=== PATIENT | male | born 1935 | race Caucasian/White ===

== ENCOUNTER 2018-06-03 10:22 | Inpatient (IN) | payer OTHER, BC ==
[~2018-06-03] VITALS: Ht 190.5 cm; Wt 71.8 kg
[2018-06-03 10:31] VITALS: Ht 190.5 cm; Wt 71.8 kg
[2018-06-03] MEDS ORDERED: MIRALAX17 GM PO (10:41)
[2018-06-03] MEDS ORDERED: COLACE100 MG PO (10:42)
[2018-06-03] MEDS ORDERED: SENNA LAX8.6 MG PO (10:42)
[2018-06-03] MEDS ORDERED: MYSOLINE50 M1 PO (10:42)
[2018-06-03] MEDS ORDERED: ELIQUIS2.5 MG PO (10:43)
[2018-06-03] MEDS ORDERED: LIPI20 PO (10:43)
[2018-06-03 10:59] LABS: PLATELET COUNT 253 x10^3mcL (130-400)
[2018-06-03 11:24] LABS: ALBUMIN 3.6 g/dL (3.4-5.0); ALKALINE PHOSPHATASE 72 U/L (46-116); ALT/SGPT 14 U/L (16-63); AST/SGOT 15 U/L (15-37); BILIRUBIN TOTAL 0.5 mg/dL (0.20-1.00); C REACTIVE PROTEIN 3.7 mg/dL (<=0.9); CALCIUM 9.1 mg/dL (8.5-10.1); CHLORIDE SERUM 90 mmol/L (98-107); CREATININE SERUM 0.7 mg/dL (0.7-1.3); GLUCOSE SERUM 98 mg/dL (74-106); POTASSIUM SERUM 3.5 mmol/L (3.5-5.1); SODIUM SERUM 136 mmol/L (136-145)
[2018-06-03 11:26] LABS: CARBON DIOXIDE 41.8 mmol/L (21-32)
[2018-06-03 11:27] LABS: T3 TOTAL 0.67 ng/mL
[2018-06-03 11:28] LABS: CK-MB 0.7 ng/mL (0-3.6)
[2018-06-03 11:37] LABS: BAND NEUTROPHIL 3 % (0-10); BASOPHIL 0 % (0-2); MONOCYTE 24 % (0-7); PLATELET MORPHOLOGY PLATELETS NORMAL; SEGMENTED NEUTROPHILS 51 % (37-75)
[2018-06-03 12:02] LABS: FREE T4 0.84 ng/dL (0.76-1.46)
[2018-06-03 12:03] LABS: FREE THYROXINE INDEX 1.5 ug/dL (1.4-4.5); T4(THYROXINE) 4.3 ug/dL (4.7-13.3)
[2018-06-03 12:55] LABS: ERYTHROCYTE SED RATE 43 mm/hr (0-20)
[2018-06-03 13:15] LABS: microscopic required? YES; urine erythrocyte 3+ (NEGATIVE)
[2018-06-03 14:11] VITALS: BP 138/60
[2018-06-03 14:15] VITALS: BP 138/60
[2018-06-03 17:27] VITALS: BP 120/59
[2018-06-03 20:43] VITALS: BP 126/64
[2018-06-04 05:47] VITALS: BP 105/47
[2018-06-04 06:43] LABS: CALCIUM 8.5 mg/dL (8.5-10.1); CHLORIDE SERUM 95 mmol/L (98-107); CREATININE SERUM 0.7 mg/dL (0.7-1.3); GLUCOSE SERUM 95 mg/dL (74-106); POTASSIUM SERUM 3.2 mmol/L (3.5-5.1); SODIUM SERUM 139 mmol/L (136-145)
[2018-06-04 06:55] LABS: CARBON DIOXIDE 41.5 mmol/L (21-32)
[2018-06-04 07:00] LABS: FREE T4 1.05 ng/dL (0.76-1.46); T4(THYROXINE) 5.5 ug/dL (4.7-13.3)
[2018-06-04 07:02] LABS: PLATELET COUNT 203 x10^3mcL (130-400)
[2018-06-04 07:18] LABS: T3 TOTAL 0.71 ng/mL
[2018-06-04 09:02] VITALS: BP 142/46
[2018-06-04 11:42] VITALS: BP 128/59
[2018-06-04 14:08] LABS: BAND NEUTROPHIL 2 % (0-10); MONOCYTE 33 % (0-7); SEGMENTED NEUTROPHILS 48 % (37-75)
[2018-06-04 14:09] LABS: PLATELET MORPHOLOGY PLATELETS NORMAL; rbc morphology (normal/abnorm) NORMAL (NORMAL)
[2018-06-04 16:46] VITALS: BP 119/60
[2018-06-04 21:24] VITALS: BP 127/61
[2018-06-05 05:43] VITALS: BP 148/67
[2018-06-05 06:31] LABS: PLATELET COUNT 196 x10^3mcL (130-400)
[2018-06-05 06:37] LABS: RED CELL DISTRIBUTION WIDTH 14.9 % (11.5-14.5)
[2018-06-05 06:40] LABS: CALCIUM 8.9 mg/dL (8.5-10.1); CHLORIDE SERUM 96 mmol/L (98-107); CREATININE SERUM 0.6 mg/dL (0.7-1.3); GLUCOSE SERUM 98 mg/dL (74-106); MAGNESIUM 1.7 mg/dL (1.8-2.4); PHOSPHOROUS 3.4 mg/dL (2.5-4.9); POTASSIUM SERUM 4.3 mmol/L (3.5-5.1); SODIUM SERUM 140 mmol/L (136-145)
[2018-06-05 06:42] LABS: CARBON DIOXIDE 40.6 mmol/L (21-32)
[2018-06-05 09:05] VITALS: BP 123/66
[2018-06-05 12:06] VITALS: BP 112/62
[2018-06-05 12:23] LABS: BAND NEUTROPHIL 3 % (0-10); MONOCYTE 36 % (0-7); SEGMENTED NEUTROPHILS 46 % (37-75)
[2018-06-05 12:24] LABS: PLATELET MORPHOLOGY PLATELETS NORMAL; rbc morphology (normal/abnorm) NORMAL (NORMAL)
[2018-06-05] MEDS ORDERED: LEVOFLOXACIN I150 ML IV (13:38)
[2018-06-05] MEDS ORDERED: IPRATROPIUM BROM3 M2 HHN (13:40)
[2018-06-05] MEDS ORDERED: FLA500 PO (13:40)
[2018-06-05] MEDS ORDERED: CYCLOBENZAPRINE5 MG PO (13:40)
[2018-06-05] MEDS ORDERED: TYL325 PO (13:41)
[2018-06-05] MEDS ORDERED: COL100 PO (13:41)
[2018-06-05] MEDS ORDERED: ULT50 PO (13:41)
[2018-06-05] MEDS ORDERED: MIRUD PO (13:42)
[2018-06-05] MEDS ORDERED: SEN PO (13:42)
[2018-06-05] MEDS ORDERED: ONDANSETRON4 M3 PO (13:43)
[2018-06-05] MEDS ORDERED: BD LACTINEX1.4 MG PO (13:44)
[2018-06-05 14:10] VITALS: BP 112/62
== END 2018-06-05 15:18 | disposition short-term general hospital (02) | DRG 177 ==
LOC: ED 10:22 → DU 12:09
PROVIDERS: Family Medicine; Specialist
DX: J69.0 Pneumonitis due to inhalation of food and vomit (principal); J86.9 Pyothorax without fistula; J96.22 Acute and chronic respiratory failure with hypercapnia; I26.99 Other pulmonary embolism without acute cor pulmonale; N17.0 Acute kidney failure with tubular necrosis; E43 Unspecified severe protein-calorie malnutrition; J44.9 Chronic obstructive pulmonary disease, unspecified; I48.2 Chronic atrial fibrillation; K76.89 Other specified diseases of liver; F41.9 Anxiety disorder, unspecified; E87.6 Hypokalemia; R31.9 Hematuria, unspecified; R91.8 Other nonspecific abnormal finding of lung field; I45.10 Unspecified right bundle-branch block; G25.0 Essential tremor; F41.8 Other specified anxiety disorders; Z68.23 Body mass index [BMI] 23.0-23.9, adult; Z99.81 Dependence on supplemental oxygen; Z66 Do not resuscitate
CPT/HCPCS: 36600; 84439; J1956; J2060; J3475; J3490; J7030; J7613; J7620; J7644; Q0092; Q9967

== ENCOUNTER 2018-11-07 05:42 | Inpatient (IN) | payer OTHER, BC ==
[~2018-11-07] VITALS: Ht 190.5 cm; Wt 68.0 kg
[~2018-11-07 05:42] MED LIST: BD LACTINEX1.4 MG PO; COL100 PO; COLACE100 MG PO; CYCLOBENZAPRINE5 MG PO; ELIQUIS2.5 MG PO; FLA500 PO; IPRATROPIUM BROM3 M2 HHN; LEVOFLOXACIN I150 ML IV; LIPI20 PO; MIRALAX17 GM PO; MIRUD PO; MYSOLINE50 M1 PO; ONDANSETRON4 M3 PO; SEN PO; SENNA LAX8.6 MG PO; TYL325 PO; ULT50 PO
[2018-11-07 05:46] VITALS: Ht 190.5 cm; Wt 68.0 kg
[2018-11-07] MEDS ORDERED: ELIQUIS2.5 MG PO (06:30)
[2018-11-07] MEDS ORDERED: METOPROLOL TART25 M1 PO (06:31)
[2018-11-07] MEDS ORDERED: MAGNESIUM OXID400 MG PO (06:31)
[2018-11-07] MEDS ORDERED: NATURAL IRON65 MG PO (06:31)
[2018-11-07] MEDS ORDERED: ROZEREM8 M1 PO (06:32)
[2018-11-07] MEDS ORDERED: ZOLOFT50 MG GT (06:32)
[2018-11-07 07:08] LABS: CK-MB 0.7 ng/mL (0-3.6); FREE T4 1.04 ng/dL (0.76-1.46); FREE THYROXINE INDEX 2.4 ug/dL (1.4-4.5); T4(THYROXINE) 6.8 ug/dL (4.7-13.3)
[2018-11-07 07:12] LABS: CALCIUM 7.9 mg/dL (8.5-10.1); CARBON DIOXIDE 34.9 mmol/L (21-32); CHLORIDE SERUM 102 mmol/L (98-107); CREATININE SERUM 0.7 mg/dL (0.7-1.3); GLUCOSE SERUM 131 mg/dL (74-106); POTASSIUM SERUM 3.7 mmol/L (3.5-5.1); SODIUM SERUM 140 mmol/L (136-145)
[2018-11-07 07:22] LABS: ALKALINE PHOSPHATASE 65 U/L (46-116); ALT/SGPT 15 U/L (16-63); AST/SGOT 18 U/L (15-37); BILIRUBIN TOTAL 0.47 mg/dL (0.20-1.00); C REACTIVE PROTEIN 7.9 mg/dL (<=0.9); TOTAL PROTEIN, SERUM 6.6 g/dL (6.4-8.2)
[2018-11-07 07:26] LABS: ALBUMIN 2.4 g/dL (3.4-5.0)
[2018-11-07 07:41] LABS: PLATELET COUNT 378 x10^3mcL (130-400); RED CELL DISTRIBUTION WIDTH 14.4 % (11.5-14.5)
[2018-11-07] MEDS ORDERED: MYS50 PO (08:06)
[2018-11-07 08:30] LABS: T3 TOTAL 0.69 ng/mL
[2018-11-07 08:34] LABS: ERYTHROCYTE SED RATE 49 mm/hr (0-20)
[2018-11-07 08:57] LABS: BAND NEUTROPHIL 15 % (0-10); BASOPHIL 0 % (0-2); MONOCYTE 10 % (0-7); PLATELET MORPHOLOGY GIANT PLATELET SEEN; SEGMENTED NEUTROPHILS 73 % (37-75); rbc morphology (normal/abnorm) ABNORMAL (NORMAL); tear drop cell (dacryocyte) 1+
[2018-11-07 10:33] LABS: MAGNESIUM 1.8 mg/dL (1.8-2.4); PHOSPHOROUS 3.4 mg/dL (2.5-4.9)
[2018-11-07 11:04] LABS: CHOLESTEROL/HDL RATIO 1.8
[2018-11-07 11:05] VITALS: BP 83/41
[2018-11-07 12:49] VITALS: BP 87/40
[2018-11-07 13:30] VITALS: BP 87/40
[2018-11-07 15:45] VITALS: BP 112/45
[2018-11-07 17:05] VITALS: BP 112/45
[2018-11-07 21:15] VITALS: BP 100/42
[2018-11-08 03:32] LABS: UA SPECIFIC GRAVITY >=1.030 (1.005-1.035); microscopic required? YES; urine erythrocyte 1+ (NEGATIVE)
[2018-11-08 05:55] VITALS: BP 94/39
[2018-11-08 09:06] LABS: PLATELET COUNT 273 x10^3mcL (130-400); RED CELL DISTRIBUTION WIDTH 14.2 % (11.5-14.5)
[2018-11-08 09:19] LABS: CALCIUM 8.5 mg/dL (8.5-10.1); CARBON DIOXIDE 33.7 mmol/L (21-32); CHLORIDE SERUM 102 mmol/L (98-107); CREATININE SERUM 0.9 mg/dL (0.7-1.3); GLUCOSE SERUM 102 mg/dL (74-106); MAGNESIUM 1.7 mg/dL (1.8-2.4); PHOSPHOROUS 3.4 mg/dL (2.5-4.9); POTASSIUM SERUM 4.3 mmol/L (3.5-5.1); SODIUM SERUM 141 mmol/L (136-145)
[2018-11-08 09:25] VITALS: BP 102/50
[2018-11-08 12:35] VITALS: BP 120/61
[2018-11-08 14:11] LABS: BAND NEUTROPHIL 3 % (0-10); BASOPHIL 0 % (0-2); MONOCYTE 6 % (0-7); SEGMENTED NEUTROPHILS 87 % (37-75); rbc morphology (normal/abnorm) NORMAL (NORMAL)
[2018-11-08 16:53] VITALS: BP 106/42
[2018-11-08 21:12] VITALS: BP 112/47
[2018-11-09 04:51] VITALS: BP 108/45
[2018-11-09 06:16] LABS: PLATELET COUNT 257 x10^3mcL (130-400)
[2018-11-09 06:29] LABS: CALCIUM 8.1 mg/dL (8.5-10.1); CARBON DIOXIDE 35.4 mmol/L (21-32); CHLORIDE SERUM 103 mmol/L (98-107); CREATININE SERUM 0.6 mg/dL (0.7-1.3); GLUCOSE SERUM 98 mg/dL (74-106); MAGNESIUM 1.8 mg/dL (1.8-2.4); POTASSIUM SERUM 3.9 mmol/L (3.5-5.1); SODIUM SERUM 142 mmol/L (136-145)
[2018-11-09 06:35] LABS: BASOPHIL % 0 % (0-2); RED CELL DISTRIBUTION WIDTH 15.4 % (11.5-14.5)
[2018-11-09 10:28] VITALS: BP 128/59
[2018-11-09 13:01] VITALS: BP 107/56
[2018-11-09 16:52] VITALS: BP 114/55
[2018-11-09 20:38] VITALS: BP 132/59
[2018-11-10 04:53] VITALS: BP 110/58
[2018-11-10 06:00] LABS: PLATELET COUNT 235 x10^3mcL (130-400)
[2018-11-10 06:32] LABS: CALCIUM 7.5 mg/dL (8.5-10.1); CHLORIDE SERUM 102 mmol/L (98-107); CREATININE SERUM 0.6 mg/dL (0.7-1.3); GLUCOSE SERUM 104 mg/dL (74-106); MAGNESIUM 1.5 mg/dL (1.8-2.4); PHOSPHOROUS 1.7 mg/dL (2.5-4.9); POTASSIUM SERUM 3.7 mmol/L (3.5-5.1); SODIUM SERUM 141 mmol/L (136-145)
[2018-11-10 06:41] LABS: BASOPHIL % 0 % (0-2); RED CELL DISTRIBUTION WIDTH 15.1 % (11.5-14.5)
[2018-11-10] MEDS ORDERED: FLA500 PO (08:33)
[2018-11-10] MEDS ORDERED: LEVOFLOXACIN500 M1 PO (08:33)
[2018-11-10 08:41] VITALS: BP 129/58
[2018-11-10 12:03] VITALS: BP 123/49
[2018-11-10 14:55] VITALS: BP 113/69
== END 2018-11-10 15:45 | DRG 871 ==
LOC: ED 05:42 → DU 08:38
PROVIDERS: Family Medicine; Specialist; ADMIT Internal Medicine
DX: A41.89 Other specified sepsis (principal); J96.21 Acute and chronic respiratory failure with hypoxia; E43 Unspecified severe protein-calorie malnutrition; J69.0 Pneumonitis due to inhalation of food and vomit; J18.9 Pneumonia, unspecified organism; A08.4 Viral intestinal infection, unspecified; E86.0 Dehydration; G25.0 Essential tremor; J44.9 Chronic obstructive pulmonary disease, unspecified; F32.9 Major depressive disorder, single episode, unspecified; G47.00 Insomnia, unspecified; I48.91 Unspecified atrial fibrillation; Z91.81 History of falling; Z66 Do not resuscitate; Z99.81 Dependence on supplemental oxygen; Z79.01 Long term (current) use of anticoagulants
CPT/HCPCS: 36600; 83880; 84439; 87046; 87046-59; C9113; J1956; J2543; J3490; J7030; J7620; Q0092